=== PATIENT | female | born 2005 | race Caucasian/White ===

== ENCOUNTER 2024-03-30 19:08 | Emergency (ER) | payer OTHER, SELFPAY ==
[2024-03-30 19:13] VITALS: BP 126/70; PULSE 82; TEMP 36.8; O2SAT 98; BMI 25.7
[2024-03-30 19:28] LABS: Bilirubin Urine NEGATIVE (NEGATIVE); Blood Urine TRACE-I (NEGATIVE); Clarity Urine CLEAR (CLEAR); Color Urine LT. YELLOW (YELLOW); Glucose Urine UA NEGATIVE (NEGATIVE); Ketones Urine NEGATIVE (NEGATIVE); Leukocyte Esterase Urine NEGATIVE (NEGATIVE); Nitrite Urine NEGATIVE (NEGATIVE); Protein Urine NEGATIVE (NEG/TRACE); Specific Gravity Urine >=1.030 (1.005-1.025)
[2024-03-30 19:34] LABS: HCG Qualitative Urine* NEGATIVE (NEGATIVE); Internal Control Within Normal Limits
--- NOTE | 2024-03-30 20:47 | ED_ITS ---
HPI - Female Genitourinary General Chief complaint: Urogenital-Female Stated complaint: UTI Time Seen by Provider: 03/30/24 20:41 Source: patient Mode of arrival: walk-in Limitations: no limitations History of Present Illness HPI Narrative: patient presents complaining of dysuria. Past history of recurrent UTI. Presents now with complaint of dysuria, frequency and sense to urinate even after her bladder is empty. No flank pain or fever. She other mcclelland feels well. states she will occ vomit but states this is something she does occ and does not feel this is any different Related Data Home Medications ?Medication ?Instructions ?Recorded ?Confirmed aripiprazole 5 mg tablet 5 mg PO DAILY 03/30/24 03/30/24 lamotrigine 100 mg tablet 100 mg PO DAILY 03/30/24 03/30/24 Allergies Allergy/AdvReac Type Severity Reaction Status Date / Time azithromycin Allergy Mild Hives Verified 03/30/24 19:13 Review of Systems ROS Status of ROS 10 or more systems reviewed and unremark able except as noted in history and below Exam Constitutional Vital Signs, click to edit/add: Last Vital Signs Temp 98.3 F 03/30/24 19:13 Pulse 82 03/30/24 19:13 Resp 18 03/30/24 19:13 BP 126/70 03/30/24 19:13 Pulse Ox 98 03/30/24 19:13 O2 Del Method Room Air 03/30/24 19:13 Common normals: no apparent distress, average body habitus, oriented x3, no limitations, healthy appearing, alert and well nourished [facility] Common normals: normocephalic Eye Common normals: EOMs intact bilaterally and conjunctivae normal Respiratory Common normals: normal respiratory effort, no retractions, no use of accessory muscles and clear to auscultation bilaterally Cardio Common normals: regular rate, regular rhythm, S1 normal heart sound and S2 normal heart sound GI Common normals: Normal to inspection, nondistended, normoactive bowel sounds present, soft to palpation and non-tender Back & Pelvis Common normals: no CVA tenderness Extremity Common normals: normal to inspection and full ROM Neuro Common normals: oriented x3, CN's II-XII intact bilaterally, moves all extremities and no focal motor deficits Psych Appearance: grossly normal Course Vital Signs Vital signs: Vital Signs Temperature 98.3 F 03/30/24 19:13 Pulse Rate 82 03/30/24 19:13 Respiratory Rate 18 03/30/24 19:13 Blood Pressure 126/70 03/30/24 19:13 Pulse Oximetry 98 03/30/24 19:13 Oxygen Delivery Method Room Air 03/30/24 19:13 Temperature 98.3 F 03/30/24 19:13 Pulse Rate 82 03/30/24 19:13 Respiratory Rate 18 03/30/24 19:13 Blood Pressure 126/70 03/30/24 19:13 Pulse Oximetry 98 03/30/24 19:13 Oxygen Delivery Method Room Air 03/30/24 19:13 MDM - Female Genitourinary MDM Narrative Medical decision making narrative: patient has past history of UTI. Now presents with UTI symptoms or dysuria, frequency and urgency. UA with evidence of dehydration but no obvious infection. Patient states symptoms just started. Will treat with pyridium and keflex and advised she drink plenty of fluids and have her urine rechecked by her doctor next week Lab Data Labs: Lab Results 03/30/24 Range/Units 19:19 Urine Color Lt. yellow (YELLOW) Urine Clarity Clear (CLEAR) Urine pH 6.0 (5.0-9.0) Ur Specific [place] >=1.030 A (1.005-1.025) Urine Protein Negative (NEG/TRACE) mg/dL Urine Glucose (UA) Negative (NEGATIVE) mg/dL Urine Ketones Negative (NEGATIVE) mg/dL Urine Occult Blood Trace-i (NEGATIVE) Urine Nitrite Negative (NEGATIVE) Urine Bilirubin Negative (NEGATIVE) Urine Urobilinogen 1.0 (0.2-1.0) EU/dL Ur Leukocyte Esterase Negative (NEGATIVE) Urine HCG, Qual Negative (NEGATIVE) Discharge Plan Discharge Stand Alone Forms: Work/School Release, Portal Instructions Chief Complaint: Urogenital-Female Clinical Impression: Dysuria Patient Disposition: Home, Self-Care Prescriptions / Home Meds: No Action aripiprazole 5 mg tablet 5 mg PO DAILY lamotrigine 100 mg tablet 100 mg PO DAILY Print Language: [place] Instructions: Dysuria (ED) Additional Instructions: drink plenty of fluids. Follow up with your doctor next week for recheck Referrals: Physician,Non-Staff, MD [Primary Care Provider] - 1 week
[2024-03-30] MEDS: CEPHALEXIN 500 MG CAPSULE 1000 MG PO (20:58)
[2024-03-30] MEDS: PHENAZOPYRIDINE 100 MG TABLET 200 MG PO (20:58)
== END 2024-03-30 21:07 | disposition home or self-care (01) ==
PROVIDERS: Emergency Provider Internal Medicine
DX: R30.0 Dysuria (principal); Z87.440 Personal history of urinary (tract) infections
CPT/HCPCS: 81003; 84703; 99283